=== PATIENT | male | born 1945 | race African-American/Black ===

== ENCOUNTER 2018-03-15 23:38 | Inpatient (IN) | payer MEDICARE, MEDICAID ==
[~2018-03-15] VITALS: Ht 182.9 cm; Wt 56.4 kg
[~2018-03-15 23:38] MED LIST: HYDR-4134 PO; LOSA25TA3 PO; METO25TA6 PO; NIFE60TA64 PO; PROT40 PO
[2018-03-16] VITALS (79 sets, daily range): BP systolic 94–192; BP diastolic 51–108
[2018-03-16] MEDS ORDERED: LABETALOL 5MG/ML SYR 20 MG/4 ML SYRINGE IV SCH ×2 (00:28→02:33)
[2018-03-16 00:34] LABS: BASOPHILS % 0.6 % (0.0-2.0); EOSINOPHILS % 0.2 % (0.0-5.0); HEMATOCRIT. 37.3 % (42.0-52.0); LYMPHOCYTES % 14.8 % (20.0-50.0); MEAN CORPUSCULAR HEMOGLOBIN 30.3 pg (28.0-32.0); MEAN CORPUSCULAR VOLUME 87.1 fL (80.0-94.0); MEAN PLATELET VOLUME 7.8 fl (7.4-10.4); MONOCYTES % 7.1 % (2.0-8.0); NEUTROPHILS % 77.3 % (40.0-76.0); PLATELET 200 x1000/uL (130-400); RED BLOOD CELL COUNT 4.29 mill/uL (4.7-6.1); RED CELL DISTRIBUTION WIDTH 13.9 % (11.6-14.6)
[2018-03-16 00:42] LABS: CHLORIDE 104 mEq/L (98-107)
[2018-03-16 00:49] LABS: AMMONIA 25 uMol/L (<32)
[2018-03-16 00:52] LABS: ETHANOL BLOOD < 10 mg/dL; INR 2.4; PROTHROMBIN TIME 24.8 sec (9.4-11.6)
[2018-03-16] MEDS ORDERED: VANCOMYCIN 1 G PREMIX 200 ML IV ONE (01:00)
[2018-03-16] MEDS ORDERED: CEFTRIAXONE 1 G PREMIX 50 ML IV ONE (01:00)
[2018-03-16] MEDS ORDERED: LABETALOL HCL 20MG/4ML CARPUJECT IV ONE ×2 (01:00)
[2018-03-16 02:11] LABS: CLARITY URINE CLEAR (CLEAR); COLOR URINE YELLOW (YELLOW); KETONES URINE TRACE (NEGATIVE); LEUKOCYTE ESTERASE URINE NEGATIVE (NEGATIVE); NITRITE URINE NEGATIVE (NEGATIVE); OCCULT BLOOD URINE 1+ (NEGATIVE); PROTEIN URINE 1+ (NEGATIVE); SPECIFIC GRAVITY URINE 1.023 (1.005-1.030)
[2018-03-16 02:20] LABS: *AMPHETAMINES SCREEN URINE NEGATIVE (NEGATIVE); *BARBITURATES SCREEN URINE NEGATIVE (NEGATIVE); *BENZODIAZEPINES SCREEN URINE NEGATIVE (NEGATIVE); *COCAINE SCREEN URINE NEGATIVE (NEGATIVE); METHADONE URINE SCREEN NEGATIVE (NEGATIVE); OPIATES URINE SCREEN NEGATIVE (NEGATIVE)
[2018-03-16 02:21] LABS: CANNABINOID URINE SCREEN NEGATIVE (NEGATIVE); PHENCYCLIDINE URINE SCREEN NEGATIVE (NEGATIVE)
[2018-03-16] MEDS ORDERED: LEVETIRACETAM 1000MG/100ML 100 ML IV ONE (03:15)
[2018-03-16] MEDS ORDERED: NICARDIPINE 100 MG in SODIUM CHLORIDE 0.9% 60 ML IV ONE ×2 (03:15→03:30)
[2018-03-16] MEDS ORDERED: PHYTONADIONE 10MG/ML AMP IM SCH ×2 (03:30→05:15)
[2018-03-16] MEDS ORDERED: NICARDIPINE 100 MG in SODIUM CHLORIDE 0.9% 60 ML IV SCH (03:30)
[2018-03-16] MEDS ORDERED: LORAZEPAM 2MG/ML CPJ IV PRN (06:45)
[2018-03-16] MEDS ORDERED: IPRATROPIUM/ALBUTEROL 0.5-3(2.5)MG/3ML NEB INH PRN (06:45)
[2018-03-16] MEDS ORDERED: ONDANSETRON HCL 4MG/2ML VIAL IV PRN (06:45)
[2018-03-16] MEDS: DEXT 5%/LACTATED RINGERS 1,000 ML IV SCH ×2 (06:57→21:33)
[2018-03-16] MEDS ORDERED: MANNITOL 20% (20GM/100ML) BAG 500ML PREMIX IV ONE (07:15)
[2018-03-16] MEDS ORDERED: PHYTONADIONE 10MG/ML AMP SUBCUT SCH (07:15)
[2018-03-16] MEDS ORDERED: MANNITOL 20% 125 ML IV SCH (07:30)
[2018-03-16] MEDS: LEVETIRACETAM 500 MG in SODIUM CHLORIDE 0.9% 100 ML IV SCH ×2 (10:00→21:33)
[2018-03-16] MEDS ORDERED: POVIDONE-IODINE OINT 28.4GM TOP ONE (10:47)
[2018-03-16] MEDS ORDERED: BACITRACIN ZINC 15GM TUBE TOP ONE (10:47)
[2018-03-16] MEDS ORDERED: THROMBIN (BOVINE) 5000 UNITS/VIAL TOP ONE (10:48)
[2018-03-16] MEDS ORDERED: GELATIN SPONGE,COMPRESSED SZ 100 ONE (10:48)
[2018-03-16] MEDS ORDERED: LIDOCAINE HCL/EPINEPHRINE 1%-EPI 1:100,000 20 ML VIAL ONE (10:48)
[2018-03-16] MEDS ORDERED: NORMAL SALINE 0.9% 10 ML SYR ONE (10:48)
[2018-03-16] MEDS ORDERED: BACITRACIN 50,000 UNITS/VIAL ONE (10:49)
[2018-03-16] MEDS ORDERED: ROCURONIUM BROMIDE 10MG/ML VIAL 5ML IV ONE (11:01)
[2018-03-16] MEDS ORDERED: PROPOFOL 200MG/20ML VIAL IV ONE (11:01)
[2018-03-16] MEDS ORDERED: FENTANYL CITRATE/PF 50MCG/ML 5ML VIAL ONE (11:01)
[2018-03-16 11:21] LABS: INR 1.5; PARTIAL THROMBOPLASTIN TIME 27.3 sec (23.4-31.0); PROTHROMBIN TIME 15.9 sec (9.4-11.6)
[2018-03-16] MEDS ORDERED: PHENYTOIN SODIUM 250MG/5ML VIAL IV ONE (12:13)
[2018-03-16] MEDS ORDERED: IPRATROPIUM/ALBUTEROL 0.5-3(2.5)MG/3ML NEB HHN PRN (12:15)
[2018-03-16] MEDS ORDERED: PANTOPRAZOLE SODIUM 40 MG/VIAL IV SCH (12:15)
[2018-03-16] MEDS ORDERED: ESMOLOL HCL 10MG/ML 10ML VIAL IV ONE (13:23)
[2018-03-16] MEDS ORDERED: LIDOCAINE HCL/PF 1% 10 MG/ML 5ML VIAL ONE (13:23)
[2018-03-16 15:06] LABS: BG BASE EXCESS 1.5 mmol/L (-2.0-2.0); BG CARBOXYHEMOGLOBIN 0.2 % (0.5-1.5); BG DEOXYHEMOGLOBIN 1.5 % (0.0-5.0); BG FRACTION INSPIRED OXYGEN 28; BG HCO3 ACT 21.2 mmol/L (22.0-26.0); BG METHEMOGLOBIN 0.2 % (0.0-1.5); BG OXYGEN SATURATION 98.5 % (92.0-98.5); BG OXYHEMOGLOBIN 98.1 % (94.0-97.0); BG PCO2 21.7 mmHg (35.0-45.0); BG PH 7.608 (7.350-7.450); BG PO2 123.3 mmHg (75.0-100.0); BG PRESSURE SUPPORT 5; BG SAMPLE SITE A-LINE; BG TOTAL HEMOGLOBIN 12.7 g/dL (12.0-18.0); BG VENT MODE VENT - CPAP
[2018-03-16] MEDS: MORPHINE SULFATE 4 MG/ML CPJ (NOT FOR IM USE) IV PRN (15:13)
[2018-03-16] MEDS: PROPOFOL 10MG/ML 100ML 100 ML IV PRN ×2 (16:27→21:38)
[2018-03-16] MEDS: NICARDIPINE 100 MG in SODIUM CHLORIDE 0.9% 60 ML IV PRN (17:45)
[2018-03-16] MEDS: IPRATROPIUM/ALBUTEROL 0.5-3(2.5)MG/3ML NEB HHN SCH (20:02)
[2018-03-17] VITALS (88 sets, daily range): BP systolic 95–182; BP diastolic 58–131
[2018-03-17] MEDS: IPRATROPIUM/ALBUTEROL 0.5-3(2.5)MG/3ML NEB HHN SCH ×4 (01:43→20:21)
[2018-03-17] MEDS: PROPOFOL 10MG/ML 100ML 100 ML IV PRN ×2 (02:56→09:13)
[2018-03-17 05:57] LABS: BASOPHILS % 0.1 % (0.0-2.0); EOSINOPHILS % 0.1 % (0.0-5.0); HEMATOCRIT. 35.2 % (42.0-52.0); HEMOGLOBIN. 12.2 g/dL (14.0-18.0); LYMPHOCYTES % 13.8 % (20.0-50.0); MEAN CORPUSCULAR HEMOGLOBIN 30.6 pg (28.0-32.0); MEAN CORPUSCULAR VOLUME 87.9 fL (80.0-94.0); MEAN PLATELET VOLUME 8.7 fl (7.4-10.4); MONOCYTES % 7.8 % (2.0-8.0); NEUTROPHILS % 78.2 % (40.0-76.0); PLATELET 167 x1000/uL (130-400); RED CELL DISTRIBUTION WIDTH 14.4 % (11.6-14.6)
[2018-03-17 05:58] LABS: INR 1.3; PARTIAL THROMBOPLASTIN TIME 24.4 sec (23.4-31.0); PROTHROMBIN TIME 13.6 sec (9.4-11.6)
[2018-03-17 06:25] LABS: CHLORIDE 108 mEq/L (98-107)
[2018-03-17] MEDS ORDERED: POTASSIUM CHLORIDE INJ 40 MEQ in DEXT 5% WATER 250 ML IV ONE (07:00)
[2018-03-17 08:04] LABS: BG BASE EXCESS -0.8 mmol/L (-2.0-2.0); BG CARBOXYHEMOGLOBIN 0.3 % (0.5-1.5); BG DEOXYHEMOGLOBIN 1.3 % (0.0-5.0); BG FRACTION INSPIRED OXYGEN 40; BG HCO3 ACT 21.4 mmol/L (22.0-26.0); BG METHEMOGLOBIN 0.2 % (0.0-1.5); BG OXYGEN SATURATION 98.7 % (92.0-98.5); BG OXYHEMOGLOBIN 98.2 % (94.0-97.0); BG PCO2 27.9 mmHg (35.0-45.0); BG PH 7.502 (7.350-7.450); BG PO2 177.7 mmHg (75.0-100.0); BG SAMPLE SITE RIGHT RADIAL; BG TIDAL VOLUME(mL) 500 mL; BG TOTAL HEMOGLOBIN 11.7 g/dL (12.0-18.0); BG VENT MODE VENT - A/C; BG VENT RATE 14 set
[2018-03-17] MEDS ORDERED: PHYTONADIONE 10MG/ML AMP IM NR (09:00)
[2018-03-17] MEDS: PANTOPRAZOLE SODIUM 40 MG/VIAL IV SCH (09:12)
[2018-03-17] MEDS: LEVETIRACETAM 500 MG in SODIUM CHLORIDE 0.9% 100 ML IV SCH ×2 (09:15→21:14)
[2018-03-17] MEDS: KCL 20MEQ/100ML PREMIX 100 ML IV SCH ×2 (09:16→11:39)
[2018-03-17 13:00] LABS: BG CARBOXYHEMOGLOBIN 0.3 % (0.5-1.5); BG DEOXYHEMOGLOBIN 1.5 % (0.0-5.0); BG FRACTION INSPIRED OXYGEN 40; BG HCO3 ACT 20.8 mmol/L (22.0-26.0); BG METHEMOGLOBIN 0.2 % (0.0-1.5); BG OXYGEN SATURATION 98.5 % (92.0-98.5); BG PCO2 23.8 mmHg (35.0-45.0); BG PO2 142.3 mmHg (75.0-100.0); BG SAMPLE SITE RIGHT RADIAL; BG TOTAL HEMOGLOBIN 11.8 g/dL (12.0-18.0); BG VENT MODE MASK - AEROSOL
[2018-03-17] MEDS: DEXT 5%/LACTATED RINGERS 1,000 ML IV SCH (19:42)
[2018-03-18] VITALS (73 sets, daily range): BP systolic 97–147; BP diastolic 61–111
[2018-03-18] MEDS: IPRATROPIUM/ALBUTEROL 0.5-3(2.5)MG/3ML NEB HHN SCH ×4 (02:13→20:00)
[2018-03-18] MEDS ORDERED: HYALURONATE SODIUM 14 MG/ML 0.85ML SYRINGE IO ONE (08:19)
[2018-03-18] MEDS: PANTOPRAZOLE SODIUM 40 MG/VIAL IV SCH (08:40)
[2018-03-18] MEDS: LEVETIRACETAM 500 MG in SODIUM CHLORIDE 0.9% 100 ML IV SCH (09:11)
[2018-03-18] MEDS ORDERED: POTASSIUM CHLORIDE 20MEQ TABLET SR PO NR (12:45)
[2018-03-18] MEDS: DEXT 5%/LACTATED RINGERS 1,000 ML IV SCH ×2 (14:02→16:00)
[2018-03-18] MEDS: LEVETIRACETAM 500MG TABLET PO SCH (21:16)
[2018-03-19] VITALS (52 sets, daily range): BP systolic 100–163; BP diastolic 71–122
[2018-03-19] MEDS: IPRATROPIUM/ALBUTEROL 0.5-3(2.5)MG/3ML NEB HHN SCH ×4 (01:26→20:16)
[2018-03-19] MEDS: DEXT 5%/LACTATED RINGERS 1,000 ML IV SCH ×2 (04:59→23:19)
[2018-03-19] MEDS: PANTOPRAZOLE SODIUM 40 MG/VIAL IV SCH (09:30)
[2018-03-19] MEDS: LEVETIRACETAM 500MG TABLET PO SCH ×2 (09:30→20:15)
[2018-03-19 11:02] LABS: BASOPHILS % 0.5 % (0.0-2.0); EOSINOPHILS % 1.4 % (0.0-5.0); HEMATOCRIT. 29.8 % (42.0-52.0); HEMOGLOBIN. 10.5 g/dL (14.0-18.0); LYMPHOCYTES % 7.6 % (20.0-50.0); MEAN CORPUSCULAR HEMOGLOBIN 30.6 pg (28.0-32.0); MEAN CORPUSCULAR VOLUME 87.2 fL (80.0-94.0); MEAN PLATELET VOLUME 8.6 fl (7.4-10.4); MONOCYTES % 5.8 % (2.0-8.0); NEUTROPHILS % 84.7 % (40.0-76.0); PLATELET 132 x1000/uL (130-400); RED BLOOD CELL COUNT 3.42 mill/uL (4.7-6.1); RED CELL DISTRIBUTION WIDTH 14.1 % (11.6-14.6)
[2018-03-19 11:18] LABS: CHLORIDE 106 mEq/L (98-107)
[2018-03-19] MEDS ORDERED: POTASSIUM CHLORIDE 20MEQ TABLET SR PO NR (12:15)
[2018-03-19] MEDS: NICARDIPINE 100 MG in SODIUM CHLORIDE 0.9% 60 ML IV PRN (23:08)
[2018-03-20] VITALS (101 sets, daily range): BP systolic 104–174; BP diastolic 64–108
[2018-03-20] MEDS: IPRATROPIUM/ALBUTEROL 0.5-3(2.5)MG/3ML NEB HHN SCH ×4 (00:31→21:30)
[2018-03-20] MEDS: MORPHINE SULFATE 4 MG/ML CPJ (NOT FOR IM USE) IV PRN ×5 (01:23→22:02)
[2018-03-20] MEDS: DEXT 5%/LACTATED RINGERS 1,000 ML IV SCH ×2 (03:47→16:25)
[2018-03-20 05:40] LABS: HEMATOCRIT 28.9 % (42.0-52.0); HEMOGLOBIN 10.2 g/dL (14.0-18.0); MEAN CORPUSCULAR HEMOGLOBIN 30.4 pg (28.0-32.0); MEAN CORPUSCULAR VOLUME 86.2 fL (80.0-94.0); PLATELET 176 x1000/uL (130-400); RED BLOOD CELL COUNT 3.35 mill/uL (4.7-6.1); RED CELL DISTRIBUTION WIDTH 14.3 % (11.6-14.6)
[2018-03-20 05:44] LABS: INR 1.2
[2018-03-20] MEDS: LEVETIRACETAM 500MG TABLET PO SCH ×2 (09:22→21:02)
[2018-03-20] MEDS: PANTOPRAZOLE SODIUM 40 MG/VIAL IV SCH (09:22)
[2018-03-20] MEDS ORDERED: NIFEDIPINE XL 60MG TAB PO SCH (11:45)
[2018-03-20] MEDS ORDERED: POTASSIUM CHLORIDE INJ 40 MEQ in DEXT 5% WATER 250 ML IV ONE (11:45)
[2018-03-20] MEDS ORDERED: METOPROLOL TARTRATE 25MG TABLET PO SCH (12:00)
[2018-03-20] MEDS ORDERED: METOPROLOL TARTRATE 25MG TABLET PO ONE (12:00)
[2018-03-20] MEDS: LOSARTAN POTASSIUM 25 MG TABLET PO SCH (12:07)
[2018-03-20] MEDS: DOCUSATE SODIUM 250MG CAPSULE PO PRN (12:07)
[2018-03-20] MEDS: NICOTINE 21MG PATCH TD SCH (12:15)
[2018-03-20] MEDS: KCL 20MEQ/100ML PREMIX 100 ML IV SCH ×2 (12:56→14:49)
[2018-03-20] MEDS: HYDRALAZINE HCL 25MG TABLET PO SCH ×2 (14:49→21:02)
[2018-03-20] MEDS: METOPROLOL TARTRATE 25MG TABLET PO SCH (21:02)
[2018-03-21] VITALS (107 sets, daily range): BP systolic 93–159; BP diastolic 39–110
[2018-03-21] MEDS: NICARDIPINE 100 MG in SODIUM CHLORIDE 0.9% 60 ML IV PRN ×2 (01:00→23:55)
[2018-03-21] MEDS: MORPHINE SULFATE 4 MG/ML CPJ (NOT FOR IM USE) IV PRN ×4 (02:21→21:21)
[2018-03-21] MEDS: IPRATROPIUM/ALBUTEROL 0.5-3(2.5)MG/3ML NEB HHN SCH ×3 (03:01→08:29)
[2018-03-21 05:40] LABS: BASOPHILS % 0.3 % (0.0-2.0); EOSINOPHILS % 1.8 % (0.0-5.0); HEMATOCRIT. 34.1 % (42.0-52.0); HEMOGLOBIN. 11.7 g/dL (14.0-18.0); LYMPHOCYTES % 12.7 % (20.0-50.0); MEAN CORPUSCULAR HEMOGLOBIN 29.7 pg (28.0-32.0); MEAN CORPUSCULAR VOLUME 86.3 fL (80.0-94.0); MEAN PLATELET VOLUME 8.7 fl (7.4-10.4); MONOCYTES % 7.9 % (2.0-8.0); NEUTROPHILS % 77.3 % (40.0-76.0); PLATELET 272 x1000/uL (130-400); RED BLOOD CELL COUNT 3.95 mill/uL (4.7-6.1); RED CELL DISTRIBUTION WIDTH 13.7 % (11.6-14.6)
[2018-03-21] MEDS: DEXT 5%/LACTATED RINGERS 1,000 ML IV SCH ×2 (05:46→18:51)
[2018-03-21] MEDS: HYDRALAZINE HCL 25MG TABLET PO SCH ×3 (05:46→21:21)
[2018-03-21 05:51] LABS: CHLORIDE 101 mEq/L (98-107)
[2018-03-21] MEDS: LEVETIRACETAM 500MG TABLET PO SCH ×2 (08:08→21:21)
[2018-03-21] MEDS: NICOTINE 21MG PATCH TD SCH (08:08)
[2018-03-21] MEDS: PANTOPRAZOLE SODIUM 40 MG/VIAL IV SCH (08:08)
[2018-03-21] MEDS: LOSARTAN POTASSIUM 25 MG TABLET PO SCH (08:08)
[2018-03-21] MEDS: NIFEDIPINE XL 60MG TAB PO SCH (08:09)
[2018-03-21] MEDS: METOPROLOL TARTRATE 25MG TABLET PO SCH ×2 (08:09→21:21)
[2018-03-21] MEDS: DOCUSATE SODIUM 250MG CAPSULE PO PRN (08:09)
[2018-03-22] VITALS (71 sets, daily range): BP systolic 54–162; BP diastolic 36–108
[2018-03-22 04:45] LABS: HEMATOCRIT. 32.9 % (42.0-52.0); HEMOGLOBIN. 11.5 g/dL (14.0-18.0); MEAN CORPUSCULAR HEMOGLOBIN 29.7 pg (28.0-32.0); PLATELET 293 x1000/uL (130-400); RED BLOOD CELL COUNT 3.88 mill/uL (4.7-6.1); RED CELL DISTRIBUTION WIDTH 13.5 % (11.6-14.6)
[2018-03-22 04:53] LABS: CHLORIDE 99 mEq/L (98-107)
[2018-03-22] MEDS: HYDRALAZINE HCL 25MG TABLET PO SCH ×3 (05:48→22:50)
[2018-03-22] MEDS: DOCUSATE SODIUM 250MG CAPSULE PO PRN (08:48)
[2018-03-22] MEDS: NICOTINE 21MG PATCH TD SCH (08:48)
[2018-03-22] MEDS: PANTOPRAZOLE SODIUM 40 MG/VIAL IV SCH (08:48)
[2018-03-22] MEDS: LOSARTAN POTASSIUM 25 MG TABLET PO SCH (08:48)
[2018-03-22] MEDS: LEVETIRACETAM 500MG TABLET PO SCH ×2 (09:00→21:08)
[2018-03-22] MEDS: METOPROLOL TARTRATE 25MG TABLET PO SCH ×2 (09:00→21:08)
[2018-03-22 09:05] LABS: PLATELET ESTIMATE NORMAL
[2018-03-22] MEDS: DEXT 5%/LACTATED RINGERS 1,000 ML IV SCH (09:30)
[2018-03-22] MEDS: NIFEDIPINE XL 60MG TAB PO SCH (09:45)
[2018-03-22] MEDS ORDERED: BISACODYL 5MG TABLET PO PRN (11:30)
[2018-03-22] MEDS ORDERED: NICARDIPINE 100 MG in SODIUM CHLORIDE 0.9% 60 ML IV PRN (15:56)
[2018-03-22] MEDS: LACTULOSE 20G/30ML UDC PO PRN (19:25)
[2018-03-23] VITALS (36 sets, daily range): BP systolic 82–153; BP diastolic 51–100
[2018-03-23] MEDS: HYDRALAZINE HCL 25MG TABLET PO SCH ×3 (06:29→21:45)
[2018-03-23] MEDS: METOPROLOL TARTRATE 25MG TABLET PO SCH ×2 (08:33→21:00)
[2018-03-23] MEDS: NIFEDIPINE XL 60MG TAB PO SCH (08:33)
[2018-03-23] MEDS: PANTOPRAZOLE SODIUM 40 MG/VIAL IV SCH (08:33)
[2018-03-23] MEDS: LEVETIRACETAM 500MG TABLET PO SCH ×2 (08:33→21:44)
[2018-03-23] MEDS: LOSARTAN POTASSIUM 25 MG TABLET PO SCH (08:33)
[2018-03-23] MEDS: NICOTINE 21MG PATCH TD SCH (08:35)
[2018-03-24] VITALS: BP 116/53
[2018-03-24 04:00] VITALS: BP 99/51
[2018-03-24] MEDS: HYDRALAZINE HCL 25MG TABLET PO SCH ×3 (06:00→22:12)
[2018-03-24 08:00] VITALS: BP 101/59
[2018-03-24] MEDS: NIFEDIPINE XL 60MG TAB PO SCH (08:55)
[2018-03-24] MEDS: LOSARTAN POTASSIUM 25 MG TABLET PO SCH (08:56)
[2018-03-24] MEDS: METOPROLOL TARTRATE 25MG TABLET PO SCH ×2 (08:56→20:34)
[2018-03-24] MEDS: LEVETIRACETAM 500MG TABLET PO SCH ×2 (09:23→20:34)
[2018-03-24] MEDS: NICOTINE 21MG PATCH TD SCH (09:23)
[2018-03-24] MEDS: PANTOPRAZOLE SODIUM 40 MG/VIAL IV SCH (09:23)
[2018-03-24 12:00] VITALS: BP 94/58
[2018-03-24 16:00] VITALS: BP 105/68
[2018-03-24] MEDS: MORPHINE SULFATE 4 MG/ML CPJ (NOT FOR IM USE) IV PRN (19:43)
[2018-03-24 20:00] VITALS: BP 122/77
[2018-03-25] VITALS: BP_SYST 117; BP_SYST 136; BP_DIAS 71
[2018-03-25] MEDS: MORPHINE SULFATE 4 MG/ML CPJ (NOT FOR IM USE) IV PRN ×2 (01:41→06:08)
[2018-03-25 04:00] VITALS: BP 126/69
[2018-03-25] MEDS: HYDRALAZINE HCL 25MG TABLET PO SCH ×3 (06:08→21:31)
[2018-03-25 08:00] VITALS: BP 123/83
[2018-03-25] MEDS: NICOTINE 21MG PATCH TD SCH (10:00)
[2018-03-25] MEDS: METOPROLOL TARTRATE 25MG TABLET PO SCH ×2 (10:00→20:17)
[2018-03-25] MEDS: LEVETIRACETAM 500MG TABLET PO SCH ×2 (10:00→20:21)
[2018-03-25] MEDS: PANTOPRAZOLE SODIUM 40 MG/VIAL IV SCH (10:01)
[2018-03-25] MEDS: NIFEDIPINE XL 60MG TAB PO SCH (10:01)
[2018-03-25] MEDS: LOSARTAN POTASSIUM 25 MG TABLET PO SCH (10:54)
[2018-03-25 12:00] VITALS: BP_SYST 110; BP_DIAS 70; BP_DIAS 71
[2018-03-25 16:00] VITALS: BP_SYST 101; BP_SYST 115; BP_DIAS 70; BP_DIAS 75
[2018-03-25 20:00] VITALS: BP 100/62
[2018-03-26] VITALS: BP 102/62
[2018-03-26 04:00] VITALS: BP 125/78
[2018-03-26] MEDS ORDERED: MORPHINE SULFATE 4 MG/ML CPJ (NOT FOR IM USE) IV PRN (04:00)
[2018-03-26] MEDS: HYDRALAZINE HCL 25MG TABLET PO SCH ×3 (06:51→21:35)
[2018-03-26 08:00] VITALS: BP 119/76
[2018-03-26] MEDS: LOSARTAN POTASSIUM 25 MG TABLET PO SCH (08:17)
[2018-03-26] MEDS: METOPROLOL TARTRATE 25MG TABLET PO SCH ×2 (08:17→21:00)
[2018-03-26] MEDS: PANTOPRAZOLE SODIUM 40 MG/VIAL IV SCH (08:17)
[2018-03-26] MEDS: NICOTINE 21MG PATCH TD SCH (08:17)
[2018-03-26] MEDS: NIFEDIPINE XL 60MG TAB PO SCH (08:18)
[2018-03-26] MEDS: LEVETIRACETAM 500MG TABLET PO SCH ×2 (08:18→21:34)
[2018-03-26 12:00] VITALS: BP 93/60
[2018-03-26 16:00] VITALS: BP 118/60
[2018-03-26 20:00] VITALS: BP 106/68
[2018-03-27] VITALS: BP 106/64
[2018-03-27 04:00] VITALS: BP 102/65
[2018-03-27] MEDS: HYDRALAZINE HCL 25MG TABLET PO SCH ×3 (06:00→21:07)
[2018-03-27 08:00] VITALS: BP 100/71
[2018-03-27] MEDS: PANTOPRAZOLE SODIUM 40 MG/VIAL IV SCH (08:09)
[2018-03-27] MEDS: NICOTINE 21MG PATCH TD SCH (08:10)
[2018-03-27] MEDS: LEVETIRACETAM 500MG TABLET PO SCH ×2 (08:10→21:07)
[2018-03-27] MEDS: METOPROLOL TARTRATE 25MG TABLET PO SCH ×2 (08:11→21:08)
[2018-03-27] MEDS: LOSARTAN POTASSIUM 25 MG TABLET PO SCH (08:11)
[2018-03-27] MEDS: NIFEDIPINE XL 60MG TAB PO SCH (08:11)
[2018-03-27 12:00] VITALS: BP 108/72
[2018-03-27 16:00] VITALS: BP 106/71
[2018-03-27] MEDS: HYDROCODONE/ACETAMINOPHEN 5/325MG TABLET PO PRN (17:05)
[2018-03-27 20:00] VITALS: BP 112/71
[2018-03-28] VITALS: BP 117/73
[2018-03-28] MEDS: HYDROCODONE/ACETAMINOPHEN 5/325MG TABLET PO PRN ×4 (00:43→17:18)
[2018-03-28 04:00] VITALS: BP 135/80
[2018-03-28] MEDS: HYDRALAZINE HCL 25MG TABLET PO SCH ×3 (05:45→22:06)
[2018-03-28 08:00] VITALS: BP 119/77
[2018-03-28] MEDS: NICOTINE 21MG PATCH TD SCH (08:41)
[2018-03-28] MEDS: PANTOPRAZOLE SODIUM 40 MG/VIAL IV SCH (08:41)
[2018-03-28] MEDS: LEVETIRACETAM 500MG TABLET PO SCH ×2 (08:41→22:06)
[2018-03-28] MEDS: METOPROLOL TARTRATE 25MG TABLET PO SCH ×2 (09:00→22:07)
[2018-03-28] MEDS: NIFEDIPINE XL 60MG TAB PO SCH (09:00)
[2018-03-28] MEDS: LOSARTAN POTASSIUM 25 MG TABLET PO SCH (09:00)
[2018-03-28 12:00] VITALS: BP 116/71
[2018-03-28 16:00] VITALS: BP 117/81
[2018-03-28 20:00] VITALS: BP 121/79
[2018-03-29] VITALS: BP 125/78
[2018-03-29 04:00] VITALS: BP 134/82
[2018-03-29] MEDS: HYDROCODONE/ACETAMINOPHEN 5/325MG TABLET PO PRN ×3 (06:26→21:18)
[2018-03-29] MEDS: HYDRALAZINE HCL 25MG TABLET PO SCH ×3 (06:30→21:19)
[2018-03-29 08:00] VITALS: BP 115/73
[2018-03-29] MEDS: PANTOPRAZOLE SODIUM 40 MG/VIAL IV SCH (09:19)
[2018-03-29] MEDS: METOPROLOL TARTRATE 25MG TABLET PO SCH ×2 (09:19→21:00)
[2018-03-29] MEDS: LEVETIRACETAM 500MG TABLET PO SCH ×2 (09:19→21:18)
[2018-03-29] MEDS: NIFEDIPINE XL 60MG TAB PO SCH (09:20)
[2018-03-29] MEDS: NICOTINE 21MG PATCH TD SCH (09:20)
[2018-03-29] MEDS: LOSARTAN POTASSIUM 25 MG TABLET PO SCH (09:20)
[2018-03-29 12:00] VITALS: BP 126/85
[2018-03-29 16:00] VITALS: BP 97/59
[2018-03-29 20:00] VITALS: BP 93/59
[2018-03-30] VITALS: BP 99/55
[2018-03-30 04:00] VITALS: BP 108/70
[2018-03-30] MEDS: HYDROCODONE/ACETAMINOPHEN 5/325MG TABLET PO PRN ×3 (05:53→20:38)
[2018-03-30] MEDS: HYDRALAZINE HCL 25MG TABLET PO SCH ×3 (05:56→23:08)
[2018-03-30 08:00] VITALS: BP 119/78
[2018-03-30] MEDS: LEVETIRACETAM 500MG TABLET PO SCH ×2 (08:43→20:39)
[2018-03-30] MEDS: LOSARTAN POTASSIUM 25 MG TABLET PO SCH (08:43)
[2018-03-30] MEDS: PANTOPRAZOLE SODIUM 40 MG/VIAL IV SCH (08:43)
[2018-03-30] MEDS: NICOTINE 21MG PATCH TD SCH (08:44)
[2018-03-30] MEDS: METOPROLOL TARTRATE 25MG TABLET PO SCH ×2 (08:54→20:39)
[2018-03-30] MEDS: NIFEDIPINE XL 60MG TAB PO SCH (08:54)
[2018-03-30 11:28] VITALS: BP 101/68
[2018-03-30 20:00] VITALS: BP 103/60
[2018-03-31] VITALS: BP 102/61
[2018-03-31 04:00] VITALS: BP 105/61
[2018-03-31] MEDS: HYDRALAZINE HCL 25MG TABLET PO SCH ×3 (06:15→22:31)
[2018-03-31 08:00] VITALS: BP 104/68
[2018-03-31] MEDS: METOPROLOL TARTRATE 25MG TABLET PO SCH ×2 (08:38→20:37)
[2018-03-31] MEDS: LOSARTAN POTASSIUM 25 MG TABLET PO SCH (08:38)
[2018-03-31] MEDS: NIFEDIPINE XL 60MG TAB PO SCH (08:39)
[2018-03-31] MEDS: NICOTINE 21MG PATCH TD SCH (08:49)
[2018-03-31] MEDS: LEVETIRACETAM 500MG TABLET PO SCH ×2 (08:49→20:36)
[2018-03-31] MEDS: HYDROCODONE/ACETAMINOPHEN 5/325MG TABLET PO PRN ×2 (08:50→20:45)
[2018-03-31] MEDS: PANTOPRAZOLE SODIUM 40 MG/VIAL IV SCH (09:00)
[2018-03-31 12:00] VITALS: BP 105/70
[2018-03-31 16:00] VITALS: BP 122/80
[2018-03-31 20:00] VITALS: BP 131/82
[2018-04-01] VITALS: BP 132/77
[2018-04-01 04:00] VITALS: BP 128/82
[2018-04-01] MEDS: HYDRALAZINE HCL 25MG TABLET PO SCH ×3 (06:14→21:03)
[2018-04-01 08:00] VITALS: BP 111/69
[2018-04-01] MEDS: PANTOPRAZOLE SODIUM 40 MG/VIAL IV SCH ×3 (08:55→09:03)
[2018-04-01] MEDS: LEVETIRACETAM 500MG TABLET PO SCH ×2 (08:56→20:43)
[2018-04-01] MEDS: METOPROLOL TARTRATE 25MG TABLET PO SCH ×2 (08:56→20:11)
[2018-04-01] MEDS: NIFEDIPINE XL 60MG TAB PO SCH (08:56)
[2018-04-01] MEDS: LOSARTAN POTASSIUM 25 MG TABLET PO SCH ×2 (08:56→09:00)
[2018-04-01] MEDS: NICOTINE 21MG PATCH TD SCH (08:57)
[2018-04-01] MEDS: SODIUM CHLORIDE 0.9% 1,000 ML IV SCH (11:45)
[2018-04-01 12:00] VITALS: BP 87/55
[2018-04-01 16:00] VITALS: BP 92/43
[2018-04-01 16:47] LABS: HEMATOCRIT. 29.6 % (42.0-52.0); HEMOGLOBIN. 10.2 g/dL (14.0-18.0); MEAN CORPUSCULAR HEMOGLOBIN 29.4 pg (28.0-32.0); MEAN CORPUSCULAR VOLUME 85.2 fL (80.0-94.0); MEAN PLATELET VOLUME 8.3 fl (7.4-10.4); PLATELET 227 x1000/uL (130-400); RED BLOOD CELL COUNT 3.48 mill/uL (4.7-6.1)
[2018-04-01 16:58] LABS: CHLORIDE 95 mEq/L (98-107)
[2018-04-01 18:59] LABS: PLATELET ESTIMATE NORMAL
[2018-04-01 20:00] VITALS: BP 90/50
[2018-04-02] VITALS (9 sets, daily range): BP systolic 91–108; BP diastolic 55–68
[2018-04-02] MEDS: SODIUM CHLORIDE 0.9% 1,000 ML IV SCH (01:05)
[2018-04-02 03:45] LABS: CLARITY URINE CLOUDY (CLEAR); COLOR URINE DARK YELLOW (YELLOW); KETONES URINE NEGATIVE (NEGATIVE); LEUKOCYTE ESTERASE URINE 3+ (NEGATIVE); NITRITE URINE NEGATIVE (NEGATIVE); OCCULT BLOOD URINE NEGATIVE (NEGATIVE); PROTEIN URINE 2+ (NEGATIVE); SPECIFIC GRAVITY URINE 1.017 (1.005-1.030)
[2018-04-02] MEDS: HYDRALAZINE HCL 25MG TABLET PO SCH ×3 (05:59→20:46)
[2018-04-02] MEDS ORDERED: SODIUM BICARBONATE 4% (2.4MEQ) 5ML VIAL IV ONE (08:07)
[2018-04-02] MEDS ORDERED: LIDOCAINE HCL 1% 20ML VIAL (Pyxis) INJ ONE (08:08)
[2018-04-02] MEDS: NIFEDIPINE XL 60MG TAB PO SCH (08:53)
[2018-04-02] MEDS: LOSARTAN POTASSIUM 25 MG TABLET PO SCH (08:54)
[2018-04-02] MEDS: METOPROLOL TARTRATE 25MG TABLET PO SCH ×2 (08:54→20:45)
[2018-04-02] MEDS: PANTOPRAZOLE SODIUM 40 MG/VIAL IV SCH (09:01)
[2018-04-02] MEDS: LEVETIRACETAM 500MG TABLET PO SCH ×2 (09:01→20:44)
[2018-04-02] MEDS: NICOTINE 21MG PATCH TD SCH (09:06)
[2018-04-02] MEDS: CEFTRIAXONE 1 G PREMIX 50 ML IV SCH (11:56)
[2018-04-02] MEDS: HYDROCODONE/ACETAMINOPHEN 5/325MG TABLET PO PRN (16:51)
[2018-04-02] MEDS ORDERED: ONDANSETRON 4MG ODT PO PRN (17:15)
[2018-04-03] VITALS (18 sets, daily range): BP systolic 37–135; BP diastolic 23–72
[2018-04-03] MEDS: HYDROCODONE/ACETAMINOPHEN 5/325MG TABLET PO PRN ×3 (03:19→21:02)
[2018-04-03] MEDS: SODIUM CHLORIDE 0.9% 1,000 ML IV SCH (03:23)
[2018-04-03] MEDS: HYDRALAZINE HCL 25MG TABLET PO SCH ×3 (06:00→22:00)
[2018-04-03 06:36] LABS: HEMATOCRIT. 23.2 % (42.0-52.0); HEMOGLOBIN. 8.3 g/dL (14.0-18.0); MEAN CORPUSCULAR HEMOGLOBIN 30.1 pg (28.0-32.0); MEAN CORPUSCULAR VOLUME 83.9 fL (80.0-94.0); MEAN PLATELET VOLUME 8.6 fl (7.4-10.4); PLATELET 154 x1000/uL (130-400); RED BLOOD CELL COUNT 2.76 mill/uL (4.7-6.1); RED CELL DISTRIBUTION WIDTH 13.6 % (11.6-14.6)
[2018-04-03 06:51] LABS: CHLORIDE 100 mEq/L (98-107)
[2018-04-03] MEDS: METOPROLOL TARTRATE 25MG TABLET PO SCH ×3 (09:00→21:00)
[2018-04-03] MEDS: NIFEDIPINE XL 60MG TAB PO SCH ×2 (09:00→09:10)
[2018-04-03] MEDS: LOSARTAN POTASSIUM 25 MG TABLET PO SCH (09:00)
[2018-04-03] MEDS: PANTOPRAZOLE SODIUM 40 MG/VIAL IV SCH (09:09)
[2018-04-03] MEDS: LEVETIRACETAM 500MG TABLET PO SCH ×2 (09:09→21:00)
[2018-04-03] MEDS: NICOTINE 21MG PATCH TD SCH (09:11)
[2018-04-03] MEDS: CEFTRIAXONE 1 G PREMIX 50 ML IV SCH (09:45)
[2018-04-03 13:47] LABS: PLATELET ESTIMATE NORMAL
[2018-04-04] VITALS (10 sets, daily range): BP systolic 97–127; BP diastolic 58–73
[2018-04-04] MEDS: HYDRALAZINE HCL 25MG TABLET PO SCH ×3 (06:00→21:02)
[2018-04-04] MEDS: HYDROCODONE/ACETAMINOPHEN 5/325MG TABLET PO PRN ×3 (06:18→20:23)
[2018-04-04] MEDS: CEFTRIAXONE 1 G PREMIX 50 ML IV SCH (08:47)
[2018-04-04] MEDS: LEVETIRACETAM 500MG TABLET PO SCH ×2 (08:47→20:23)
[2018-04-04] MEDS: NICOTINE 21MG PATCH TD SCH (08:47)
[2018-04-04] MEDS: PANTOPRAZOLE SODIUM 40 MG/VIAL IV SCH (08:47)
[2018-04-04 08:48] LABS: BASOPHILS % 0.5 % (0.0-2.0); EOSINOPHILS % 0.4 % (0.0-5.0); HEMATOCRIT. 23.5 % (42.0-52.0); HEMOGLOBIN. 8.4 g/dL (14.0-18.0); LYMPHOCYTES % 7.5 % (20.0-50.0); MEAN CORPUSCULAR HEMOGLOBIN 29.8 pg (28.0-32.0); MEAN CORPUSCULAR VOLUME 83.1 fL (80.0-94.0); MEAN PLATELET VOLUME 8.7 fl (7.4-10.4); MONOCYTES % 9.4 % (2.0-8.0); NEUTROPHILS % 82.2 % (40.0-76.0); PLATELET 183 x1000/uL (130-400); RED BLOOD CELL COUNT 2.83 mill/uL (4.7-6.1); RED CELL DISTRIBUTION WIDTH 13.8 % (11.6-14.6)
[2018-04-04] MEDS: LOSARTAN POTASSIUM 25 MG TABLET PO SCH (08:48)
[2018-04-04] MEDS: METOPROLOL TARTRATE 25MG TABLET PO SCH ×2 (08:48→20:25)
[2018-04-04] MEDS: LACTULOSE 20G/30ML UDC PO PRN (08:48)
[2018-04-04] MEDS: NIFEDIPINE XL 60MG TAB PO SCH (08:49)
[2018-04-04 08:57] LABS: CHLORIDE 102 mEq/L (98-107)
[2018-04-05] VITALS (13 sets, daily range): BP systolic 93–120; BP diastolic 59–72
[2018-04-05] MEDS: HYDRALAZINE HCL 25MG TABLET PO SCH ×3 (05:09→20:36)
[2018-04-05] MEDS ORDERED: PANTOPRAZOLE 40MG DR TABLET PO SCH (07:30)
[2018-04-05] MEDS: LOSARTAN POTASSIUM 25 MG TABLET PO SCH (08:23)
[2018-04-05] MEDS: METOPROLOL TARTRATE 25MG TABLET PO SCH ×2 (08:24→20:38)
[2018-04-05] MEDS: LEVETIRACETAM 500MG TABLET PO SCH ×2 (08:26→20:37)
[2018-04-05] MEDS: NIFEDIPINE XL 60MG TAB PO SCH (08:26)
[2018-04-05] MEDS: NICOTINE 21MG PATCH TD SCH (08:26)
[2018-04-05] MEDS: DOCUSATE SODIUM 250MG CAPSULE PO PRN (08:27)
[2018-04-05] MEDS: NITROFURANTOIN 100MG M/M CAPSULE PO SCH ×2 (08:30→20:36)
== END 2018-04-05 22:50 | DRG 20 ==
LOC: ER 23:38 → MICUSO 03-16 04:02 → ENRESERV 03-16 04:09 → 6EST 03-23 18:01 → 5EST 04-02 13:59
PROVIDERS: ADMIT Internal Medicine; ATTEND Internal Medicine
PROC: 4A107BD Monitoring of Intracranial Pressure, Via Natural or Artificial Opening (ICD-10-PCS; 2018-03-16)
PROC: 00H002Z Insertion of Monitoring Device into Brain, Open Approach (ICD-10-PCS; 2018-03-16)
PROC: 00U207Z Supplement Dura Mater with Autologous Tissue Substitute, Open Approach (ICD-10-PCS; 2018-03-16)
PROC: 30233L1 Transfusion of Nonautologous Fresh Plasma into Peripheral Vein, Percutaneous Approach (ICD-10-PCS; 2018-03-16)
PROC: 30233K1 Transfusion of Nonautologous Frozen Plasma into Peripheral Vein, Percutaneous Approach (ICD-10-PCS; 2018-03-16)
PROC: 5A1935Z Respiratory Ventilation, Less than 24 Consecutive Hours (ICD-10-PCS; 2018-03-16)
PROC: 0BH17EZ Insertion of Endotracheal Airway into Trachea, Via Natural or Artificial Opening (ICD-10-PCS; 2018-03-16)
PROC: 00C40ZZ Extirpation of Matter from Intracranial Subdural Space, Open Approach (ICD-10-PCS; principal; 2018-03-16 12:00)
PROC: 02HV33Z Insertion of Infusion Device into Superior Vena Cava, Percutaneous Approach (ICD-10-PCS; 2018-04-02)
PROC: B5181ZA Fluoroscopy of Superior Vena Cava using Low Osmolar Contrast, Guidance (ICD-10-PCS; 2018-04-02)
PROC: B548ZZA Ultrasonography of Superior Vena Cava, Guidance (ICD-10-PCS; 2018-04-02)
DX: S06.5X9A Traumatic subdural hemorrhage with loss of consciousness of unspecified duration, initial encounter (principal); J96.90 Respiratory failure, unspecified, unspecified whether with hypoxia or hypercapnia; E43 Unspecified severe protein-calorie malnutrition; A41.9 Sepsis, unspecified organism; G93.49 Other encephalopathy; I95.9 Hypotension, unspecified; E87.3 Alkalosis; D68.9 Coagulation defect, unspecified; D68.4 Acquired coagulation factor deficiency; K70.9 Alcoholic liver disease, unspecified; D63.8 Anemia in other chronic diseases classified elsewhere; I10 Essential (primary) hypertension; H91.92 Unspecified hearing loss, left ear; E78.1 Pure hyperglyceridemia; R26.9 Unspecified abnormalities of gait and mobility; B19.20 Unspecified viral hepatitis C without hepatic coma; N39.0 Urinary tract infection, site not specified; B96.20 Unspecified Escherichia coli [E. coli] as the cause of diseases classified elsewhere; W18.30XA Fall on same level, unspecified, initial encounter; F10.21 Alcohol dependence, in remission; K59.00 Constipation, unspecified; R47.01 Aphasia; Y93.89 Activity, other specified; Z68.1 Body mass index [BMI] 19.9 or less, adult; Z79.899 Other long term (current) drug therapy; Y92.89 Other specified places as the place of occurrence of the external cause; Y99.8 Other external cause status; Z87.891 Personal history of nicotine dependence
CPT/HCPCS: 36415; 36430; 36569; 36600; 70450; 71045; 73501; 76937; 77001; 80048; 80053; 80305; 81003; 82140; 82375; 82805; 82962; 83605; 83690; 83735; 83880; 84478; 84484; 85007; 85025; 85027; 85610; 85730; 86850; 86900; 86920; 86927; 87040; 87077; 87086; 87186; 88300; 92610; 93005; 93970; 94002; 94003; 94640; 96365; 96375; 96376; 97116; 97162; 97166; 97530; 97535; 99291; A4216; A6261; C1713; C1725; C1893; C9113; G0482; J0696; J1165; J1953; J2270; J2704; J3010; J3430; J3480; J3490; J7030; J7040; J7050; J7121; J7620; P9017; A4315

== ENCOUNTER 2018-06-06 23:10 | Inpatient (IN) | payer MEDICARE, MEDICAID ==
[~2018-06-06] VITALS: Ht 172.7 cm; Wt 58.1 kg
[2018-06-07] VITALS (83 sets, daily range): BP systolic 57–216; BP diastolic 29–86
[2018-06-07] MEDS ORDERED: ONDANSETRON HCL 4MG/2ML INJ IV STA (00:29)
[2018-06-07] MEDS ORDERED: SODIUM CHLORIDE 0.9% 1,000 ML IV ONE ×2 (00:29→00:31)
[2018-06-07] MEDS ORDERED: LORAZEPAM 2MG/ML CPJ IV STA (00:29)
[2018-06-07] MEDS ORDERED: ACETAMINOPHEN 650MG SUPP PR STA (00:31)
[2018-06-07 03:11] LABS: CHLORIDE 109 mEq/L (98-107)
[2018-06-07 03:15] LABS: PROTHROMBIN TIME 19.7 sec (9.1-11.1)
[2018-06-07 03:16] LABS: AMMONIA 32 uMol/L (<32); ETHANOL BLOOD < 10 mg/dL
[2018-06-07] MEDS ORDERED: PIPERACILLIN/TAZ 3.375G PREMIX 50 ML IV SCH ×2 (04:04→08:15)
[2018-06-07] MEDS ORDERED: VANCOMYCIN 1 G PREMIX 200 ML IV SCH ×2 (04:07→08:15)
[2018-06-07] MEDS ORDERED: NOREPINEPHRINE 4 MG in DEXT 5% WATER 246 ML IV SCH ×4 (04:15)
[2018-06-07 05:20] LABS: MEAN CORPUSCULAR HEMOGLOBIN 29.8 pg (28.0-32.0); MEAN CORPUSCULAR VOLUME 93.9 fL (80.0-94.0); MEAN PLATELET VOLUME 8.3 fl (7.4-10.4); PLATELET 68 x1000/uL (130-400); RED BLOOD CELL COUNT 1.49 mill/uL (4.7-6.1); RED CELL DISTRIBUTION WIDTH 21.8 % (11.6-14.6)
[2018-06-07 05:37] LABS: HEMOGLOBIN. 4.5 g/dL (14.0-18.0)
[2018-06-07 05:38] LABS: RED BLOOD CELL COUNT 1.46 mill/uL (4.7-6.1)
[2018-06-07 05:39] LABS: HEMATOCRIT. 13.8 % (42.0-52.0); MEAN CORPUSCULAR HEMOGLOBIN 30.1 pg (28.0-32.0); MEAN CORPUSCULAR VOLUME 95.1 fL (80.0-94.0); MEAN PLATELET VOLUME 8.5 fl (7.4-10.4); PLATELET 75 x1000/uL (130-400); RED CELL DISTRIBUTION WIDTH 22.5 % (11.6-14.6)
[2018-06-07 05:40] LABS: HEMOGLOBIN. 4.4 g/dL (14.0-18.0)
[2018-06-07 06:52] LABS: NUCLEATED RED BLOOD CELLS 1 /100 WBC
[2018-06-07 06:53] LABS: PLATELET ESTIMATE DECREASED
[2018-06-07 07:00] LABS: NUCLEATED RED BLOOD CELLS 1 /100 WBC; PLATELET ESTIMATE DECREASED
[2018-06-07 07:22] LABS: CLARITY URINE CLOUDY (CLEAR); COLOR URINE YELLOW (YELLOW); KETONES URINE TRACE (NEGATIVE); LEUKOCYTE ESTERASE URINE 3+ (NEGATIVE); NITRITE URINE NEGATIVE (NEGATIVE); OCCULT BLOOD URINE 3+ (NEGATIVE); PH URINE 5.5 (4.5-8.0); PROTEIN URINE 2+ (NEGATIVE); SPECIFIC GRAVITY URINE 1.015 (1.005-1.030)
[2018-06-07 07:35] LABS: *AMPHETAMINES SCREEN URINE NEGATIVE (NEGATIVE); *BARBITURATES SCREEN URINE NEGATIVE (NEGATIVE); *BENZODIAZEPINES SCREEN URINE NEGATIVE (NEGATIVE); *COCAINE SCREEN URINE NEGATIVE (NEGATIVE)
[2018-06-07 07:36] LABS: CANNABINOID URINE SCREEN NEGATIVE (NEGATIVE); METHADONE URINE SCREEN NEGATIVE (NEGATIVE); OPIATES URINE SCREEN NEGATIVE (NEGATIVE); PHENCYCLIDINE URINE SCREEN NEGATIVE (NEGATIVE)
[2018-06-07] MEDS ORDERED: DOCUSATE SODIUM 100MG CAPSULE PO PRN (08:15)
[2018-06-07] MEDS ORDERED: CLONIDINE 0.1MG TABLET PO PRN (08:15)
[2018-06-07] MEDS ORDERED: NA PHOS,M-B/NA PHOS,DI-BA ENEMA 118ML PR PRN (08:15)
[2018-06-07] MEDS ORDERED: ONDANSETRON HCL 4MG/2ML INJ IV PRN (08:15)
[2018-06-07] MEDS ORDERED: DIPHENHYDRAMINE 50MG/ML VIAL IV PRN (08:15)
[2018-06-07] MEDS ORDERED: IPRATROPIUM/ALBUTEROL 0.5-3(2.5)MG/3ML NEB INH PRN (08:15)
[2018-06-07] MEDS ORDERED: LORAZEPAM 0.5MG TABLET PO PRN (08:15)
[2018-06-07] MEDS ORDERED: MAGNESIUM/ALUMINUM HYDROXIDE/SIMETHICONE 30ML UDC PO PRN (08:15)
[2018-06-07] MEDS ORDERED: PANTOPRAZOLE 80 MG in SODIUM CHLORIDE 0.9% 100 ML IV SCH (09:00)
[2018-06-07] MEDS: DEXT 5%/0.45% NACL 1000ML 1,000 ML IV SCH ×2 (09:52→18:11)
[2018-06-07] MEDS ORDERED: NOREPINEPHRINE 16 MG in DEXT 5% WATER 234 ML IV PRN (10:30)
[2018-06-07] MEDS: PANTOPRAZOLE SODIUM 40 MG/VIAL IV SCH ×2 (11:24→21:36)
[2018-06-07] MEDS ORDERED: LIDOCAINE HCL 1% 20ML VIAL (Pyxis) INJ ONE (11:54)
[2018-06-07] MEDS ORDERED: OCTREOTIDE 1,000 MCG in SODIUM CHLORIDE 0.9% 98 ML IV PRN (12:30)
[2018-06-07] MEDS ORDERED: PHYTONADIONE 10MG/ML AMP SUBCUT SCH (12:45)
[2018-06-07] MEDS: PIPERACILLIN/TAZ 2.25G PREMIX 50 ML IV SCH ×2 (13:06→18:11)
[2018-06-07] MEDS: SUCRALFATE 1 G/10 ML UDC PO SCH ×3 (13:08→21:36)
[2018-06-07] MEDS: TRAMADOL 50MG TABLET PO PRN (14:12)
[2018-06-07 18:43] LABS: HEMATOCRIT 24.6 % (42.0-52.0); HEMOGLOBIN 8.1 g/dL (14.0-18.0)
[2018-06-07 19:11] LABS: CREATINE KINASE MB FRACTION 1.6 ng/mL (0.5-3.6)
[2018-06-07] MEDS ORDERED: ZOLPIDEM TARTRATE 5MG TABLET PO PRN (21:00)
[2018-06-08] VITALS (51 sets, daily range): BP systolic 85–147; BP diastolic 31–111
[2018-06-08 00:06] LABS: HEMATOCRIT 22.1 % (42.0-52.0); HEMOGLOBIN 7.3 g/dL (14.0-18.0)
[2018-06-08] MEDS: PIPERACILLIN/TAZ 2.25G PREMIX 50 ML IV SCH ×2 (00:10→06:30)
[2018-06-08 00:23] LABS: CREATINE KINASE MB FRACTION 1.1 ng/mL (0.5-3.6)
[2018-06-08 05:44] LABS: HEMATOCRIT. 26.1 % (42.0-52.0); HEMOGLOBIN. 8.7 g/dL (14.0-18.0); MEAN CORPUSCULAR HEMOGLOBIN 30.1 pg (28.0-32.0); MEAN CORPUSCULAR VOLUME 89.8 fL (80.0-94.0); PLATELET 51 x1000/uL (130-400)
[2018-06-08 05:58] LABS: CHLORIDE 111 mEq/L (98-107)
[2018-06-08 06:08] LABS: PHOSPHORUS 4.4 mg/dL (2.5-4.9)
[2018-06-08 06:14] LABS: AMMONIA 57 uMol/L (<32)
[2018-06-08] MEDS: TRAMADOL 50MG TABLET PO PRN ×2 (06:41→12:20)
[2018-06-08 08:03] LABS: HAPTOGLOBIN 213 mg/dL (30-200)
[2018-06-08] MEDS: PANTOPRAZOLE SODIUM 40 MG/VIAL IV SCH ×2 (08:19→20:27)
[2018-06-08] MEDS: SUCRALFATE 1 G/10 ML UDC PO SCH ×4 (08:19→20:27)
[2018-06-08] MEDS: DEXT 5%/0.45% NACL 1000ML 1,000 ML IV SCH ×2 (08:48→09:00)
[2018-06-08] MEDS ORDERED: VANCOMYCIN 750 MG PREMIX 150 ML IV NR (09:00)
[2018-06-08] MEDS ORDERED: FUROSEMIDE 40MG/4ML VIAL IVP SCH (09:30)
[2018-06-08 09:36] LABS: PLATELET ESTIMATE MARKEDLY DECREASED
[2018-06-08] MEDS: LEVOFLOXACIN 750MG PREMIX 150 ML IV SCH (13:41)
[2018-06-08 22:15] LABS: HEMOGLOBIN 9.6 g/dL (14.0-18.0)
[2018-06-09] VITALS (7 sets, daily range): BP systolic 118–142; BP diastolic 81–95
[2018-06-09] MEDS: SUCRALFATE 1 G/10 ML UDC PO SCH ×4 (06:10→21:47)
[2018-06-09] MEDS: TRAMADOL 50MG TABLET PO PRN ×2 (09:26→16:07)
[2018-06-09] MEDS ORDERED: VANCOMYCIN 1 G PREMIX 200 ML IV NR (09:30)
[2018-06-09] MEDS: PANTOPRAZOLE SODIUM 40 MG/VIAL IV SCH ×2 (10:07→21:47)
[2018-06-09 13:17] LABS: HEMOGLOBIN. 11.3 g/dL (14.0-18.0); MEAN CORPUSCULAR HEMOGLOBIN 29.6 pg (28.0-32.0); MEAN CORPUSCULAR VOLUME 88.7 fL (80.0-94.0); MEAN PLATELET VOLUME 9.4 fl (7.4-10.4); PLATELET 81 x1000/uL (130-400); RED BLOOD CELL COUNT 3.83 mill/uL (4.7-6.1); RED CELL DISTRIBUTION WIDTH 17.1 % (11.6-14.6)
[2018-06-09 13:56] LABS: PHOSPHORUS 3.8 mg/dL (2.5-4.9)
[2018-06-09 15:29] LABS: PLATELET ESTIMATE DECREASED
[2018-06-09] MEDS: ACETAMINOPHEN 325MG TABLET PO PRN (21:47)
[2018-06-09] MEDS: DEXT 5%/0.45% NACL 1000ML 1,000 ML IV SCH (21:49)
[2018-06-10 00:40] VITALS: BP 113/76
[2018-06-10 06:16] LABS: COMPLEMENT C3 100 mg/dL (82-167)
[2018-06-10] MEDS: SUCRALFATE 1 G/10 ML UDC PO SCH ×4 (06:40→21:34)
[2018-06-10 07:10] LABS: HEMATOCRIT. 32.7 % (42.0-52.0); HEMOGLOBIN. 11.3 g/dL (14.0-18.0); MEAN CORPUSCULAR HEMOGLOBIN 30.3 pg (28.0-32.0); MEAN CORPUSCULAR VOLUME 87.7 fL (80.0-94.0); MEAN PLATELET VOLUME 9.1 fl (7.4-10.4); PLATELET 73 x1000/uL (130-400); RED BLOOD CELL COUNT 3.73 mill/uL (4.7-6.1); RED CELL DISTRIBUTION WIDTH 16.7 % (11.6-14.6)
[2018-06-10 07:35] LABS: PHOSPHORUS 2.9 mg/dL (2.5-4.9)
[2018-06-10 08:00] VITALS: BP 107/71
[2018-06-10] MEDS: PANTOPRAZOLE SODIUM 40 MG/VIAL IV SCH ×2 (09:46→21:34)
[2018-06-10] MEDS: TRAMADOL 50MG TABLET PO PRN (09:48)
[2018-06-10 11:16] LABS: PLATELET ESTIMATE DECREASED
[2018-06-10] MEDS: LEVOFLOXACIN 750MG PREMIX 150 ML IV SCH (11:27)
[2018-06-10 12:00] VITALS: BP 108/74
[2018-06-10] MEDS ORDERED: VANCOMYCIN 750 MG PREMIX 150 ML IV SCH (12:00)
[2018-06-10] MEDS: LACTULOSE 20G/30ML UDC PO SCH (15:32)
[2018-06-10] MEDS: MAGNESIUM SULFATE 2 GM in DEXTROSE 5% WATER 50 ML IV NR ×2 (15:32→17:17)
[2018-06-10 16:00] VITALS: BP 123/82
[2018-06-10 20:00] VITALS: BP 124/81
[2018-06-11] VITALS: BP 126/84
[2018-06-11 04:00] VITALS: BP 139/87
[2018-06-11 05:41] LABS: AMMONIA 50 uMol/L (<32)
[2018-06-11 06:02] LABS: PHOSPHORUS 2.6 mg/dL (2.5-4.9)
[2018-06-11] MEDS: SUCRALFATE 1 G/10 ML UDC PO SCH ×4 (06:02→20:03)
[2018-06-11 06:18] LABS: MEAN CORPUSCULAR VOLUME 87.4 fL (80.0-94.0); MEAN PLATELET VOLUME 10.1 fl (7.4-10.4); PLATELET 79 x1000/uL (130-400); RED BLOOD CELL COUNT 3.66 mill/uL (4.7-6.1); RED CELL DISTRIBUTION WIDTH 16.7 % (11.6-14.6)
[2018-06-11] MEDS: TRAMADOL 50MG TABLET PO PRN ×2 (06:22→14:53)
[2018-06-11 08:00] VITALS: BP 119/82
[2018-06-11] MEDS: PANTOPRAZOLE SODIUM 40 MG/VIAL IV SCH (08:47)
[2018-06-11] MEDS: LACTULOSE 20G/30ML UDC PO SCH (08:48)
[2018-06-11] MEDS ORDERED: POTASSIUM CHLORIDE 20MEQ TABLET SR PO NR (09:05)
[2018-06-11 09:26] LABS: PLATELET ESTIMATE DECREASED
[2018-06-11 12:00] VITALS: BP 128/85
[2018-06-11] MEDS: GUAIFENESIN 200MG/10ML SUGAR FREE UDC PO PRN (14:53)
[2018-06-11 16:00] VITALS: BP 115/85
[2018-06-11] MEDS: VANCOMYCIN 750 MG PREMIX 150 ML IV SCH (16:10)
[2018-06-11 20:00] VITALS: BP 139/91
[2018-06-11] MEDS: ACETAMINOPHEN 325MG TABLET PO PRN (20:03)
[2018-06-12] VITALS: BP 126/63
[2018-06-12] MEDS: PANTOPRAZOLE 40MG DR TABLET PO SCH (06:42)
[2018-06-12] MEDS: SUCRALFATE 1 G/10 ML UDC PO SCH ×4 (06:45→22:02)
[2018-06-12] MEDS: TRAMADOL 50MG TABLET PO PRN (06:48)
[2018-06-12 08:00] VITALS: BP 145/93
[2018-06-12] MEDS: VANCOMYCIN 750 MG PREMIX 150 ML IV SCH (09:00)
[2018-06-12] MEDS: LACTULOSE 20G/30ML UDC PO SCH (09:43)
[2018-06-12 10:28] LABS: HEMATOCRIT. 31.9 % (42.0-52.0); HEMOGLOBIN. 10.8 g/dL (14.0-18.0); MEAN CORPUSCULAR HEMOGLOBIN 29.8 pg (28.0-32.0); MEAN CORPUSCULAR VOLUME 88.2 fL (80.0-94.0); MEAN PLATELET VOLUME 9.5 fl (7.4-10.4); PLATELET 128 x1000/uL (130-400); RED BLOOD CELL COUNT 3.62 mill/uL (4.7-6.1); RED CELL DISTRIBUTION WIDTH 16.8 % (11.6-14.6)
[2018-06-12 10:52] LABS: PLATELET ESTIMATE SLIGHTLY DECREASED
[2018-06-12 11:16] LABS: CHLORIDE 108 mEq/L (98-107)
[2018-06-12 11:21] LABS: PHOSPHORUS 2.4 mg/dL (2.5-4.9)
[2018-06-12] MEDS ORDERED: LEVOFLOXACIN 250MG TABLET PO SCH (11:30)
[2018-06-12 12:00] VITALS: BP 142/85
[2018-06-12] MEDS ORDERED: POTASSIUM CHLORIDE 20MEQ TABLET SR PO NR (14:00)
[2018-06-12 16:00] VITALS: BP 139/83
[2018-06-12] MEDS: ACETAMINOPHEN 325MG TABLET PO PRN ×2 (16:48→22:06)
[2018-06-12] MEDS: GUAIFENESIN 200MG/10ML SUGAR FREE UDC PO PRN (16:48)
[2018-06-12] MEDS: POTASSIUM-SODIUM PHOSPHATE POWDER PACKET PO SCH (16:49)
[2018-06-12 20:00] VITALS: BP 136/84
[2018-06-13] VITALS: BP 131/82
[2018-06-13 04:00] VITALS: BP 143/88
[2018-06-13] MEDS: PANTOPRAZOLE 40MG DR TABLET PO SCH (06:47)
[2018-06-13] MEDS: SUCRALFATE 1 G/10 ML UDC PO SCH ×2 (06:47→12:08)
[2018-06-13 08:00] VITALS: BP 136/94
[2018-06-13] MEDS: POTASSIUM-SODIUM PHOSPHATE POWDER PACKET PO SCH (08:23)
[2018-06-13] MEDS: LACTULOSE 20G/30ML UDC PO SCH (08:23)
[2018-06-13] MEDS: ACETAMINOPHEN 325MG TABLET PO PRN (09:43)
[2018-06-13 10:11] LABS: HEMATOCRIT. 31.5 % (42.0-52.0); HEMOGLOBIN. 10.6 g/dL (14.0-18.0); MEAN CORPUSCULAR HEMOGLOBIN 29.5 pg (28.0-32.0); MEAN CORPUSCULAR VOLUME 87.9 fL (80.0-94.0); PLATELET 167 x1000/uL (130-400); RED BLOOD CELL COUNT 3.58 mill/uL (4.7-6.1); RED CELL DISTRIBUTION WIDTH 16.6 % (11.6-14.6)
[2018-06-13 10:41] LABS: CHLORIDE 107 mEq/L (98-107)
[2018-06-13 10:54] LABS: PHOSPHORUS 2.8 mg/dL (2.5-4.9)
[2018-06-13 10:59] LABS: PLATELET ESTIMATE NORMAL
[2018-06-13 12:00] VITALS: BP 144/88
[2018-06-13] MEDS ORDERED: POTASSIUM CHLORIDE 20MEQ TABLET SR PO NR (12:00)
[2018-06-13 12:33] VITALS: BP 144/88
[2018-06-14] MEDS ORDERED: FAMOTIDINE 20MG TABLET PO SCH (09:00)
== END 2018-06-13 16:25 | disposition home health service (06) | DRG 720 ==
LOC: ER 23:10 → CVICU 06-07 04:13 → EDBEDREQTM 06-07 04:24 → EDBEDREQ 06-07 04:24 → EDBEDREQSVC 06-07 04:24 → ENRESERV 06-07 04:34 → 5WST 06-08 14:50
PROVIDERS: ADMIT Internal Medicine; ATTEND Internal Medicine
PROC: 02HV33Z Insertion of Infusion Device into Superior Vena Cava, Percutaneous Approach (ICD-10-PCS; principal; 2018-06-07)
PROC: B548ZZA Ultrasonography of Superior Vena Cava, Guidance (ICD-10-PCS; 2018-06-07)
PROC: 30233L1 Transfusion of Nonautologous Fresh Plasma into Peripheral Vein, Percutaneous Approach (ICD-10-PCS; 2018-06-07)
PROC: 30233N1 Transfusion of Nonautologous Red Blood Cells into Peripheral Vein, Percutaneous Approach (ICD-10-PCS; 2018-06-07)
PROC: 30233K1 Transfusion of Nonautologous Frozen Plasma into Peripheral Vein, Percutaneous Approach (ICD-10-PCS; 2018-06-07)
DX: A41.51 Sepsis due to Escherichia coli [E. coli] (principal); N17.0 Acute kidney failure with tubular necrosis; J69.0 Pneumonitis due to inhalation of food and vomit; J96.00 Acute respiratory failure, unspecified whether with hypoxia or hypercapnia; E43 Unspecified severe protein-calorie malnutrition; R65.21 Severe sepsis with septic shock; G92 Toxic encephalopathy; E11.22 Type 2 diabetes mellitus with diabetic chronic kidney disease; D62 Acute posthemorrhagic anemia; E87.2 Acidosis; D68.9 Coagulation defect, unspecified; D69.6 Thrombocytopenia, unspecified; E83.42 Hypomagnesemia; E87.6 Hypokalemia; N39.0 Urinary tract infection, site not specified; B19.20 Unspecified viral hepatitis C without hepatic coma; F10.21 Alcohol dependence, in remission; H91.92 Unspecified hearing loss, left ear; I12.9 Hypertensive chronic kidney disease with stage 1 through stage 4 chronic kidney disease, or unspecified chronic kidney disease; K70.9 Alcoholic liver disease, unspecified; K81.0 Acute cholecystitis; N18.9 Chronic kidney disease, unspecified; Z68.1 Body mass index [BMI] 19.9 or less, adult; Z87.820 Personal history of traumatic brain injury; Z79.899 Other long term (current) drug therapy; Z91.19 Patient's noncompliance with other medical treatment and regimen; Z82.49 Family history of ischemic heart disease and other diseases of the circulatory system
CPT/HCPCS: 36415; 36430; 36569; 70450; 71045; 76700; 76937; 78227; 80048; 80053; 80076; 80202; 80305; 80307; 80329; 81003; 82140; 82270; 82550; 82553; 82962; 83010; 83605; 83615; 83690; 83735; 84100; 84443; 84484; 85007; 85014; 85018; 85025; 85027; 85610; 86160; 86850; 86900; 86920; 86927; 87040; 87077; 87086; 87186; 93005; 93970; 96365; 96375; 97116; 97162; 97166; 99291; A9537; C1725; C9113; G0482; J1940; J1956; J2354; J2405; J2543; J3370; J3430; J3475; J3490; J7030; J7040; J7050; J7060; P9016; P9017; A4315

== ENCOUNTER 2018-09-04 10:39 | Emergency (ER) | payer MEDICARE, MEDICAID ==
[~2018-09-04] VITALS: Ht 170.2 cm; Wt 70.0 kg
[2018-09-04] MEDS ORDERED: KETOROLAC 60MG/2ML VIAL IM ONE (11:15)
[2018-09-04 11:16] VITALS: BP 136/84
== END 2018-09-04 12:44 | disposition home or self-care (01) ==
LOC: ER 11:46
DX: M19.90 Unspecified osteoarthritis, unspecified site (principal); I10 Essential (primary) hypertension
CPT/HCPCS: 96372; 99283; J1885